=== PATIENT | female | born 2000 | race Caucasian/White ===

== ENCOUNTER 2019-02-11 15:51 | Emergency (ER) | payer OTHER, SELFPAY ==
[2019-02-11 15:52] VITALS: BP 146/118; PULSE 110; RESP 17; TEMP 36.9; O2SAT 97; BMI 39.2
--- NOTE | 2019-02-11 16:03 | EKG12_ITS ---
Test Reason : CP Blood Pressure : / mmHG Vent. Rate : 101 BPM Atrial Rate : 101 BPM P-R Int : 134 ms QRS Dur : 074 ms QT Int : 358 ms P-R-T Axes : 037 -03 -11 degrees QTc Int : 464 ms Sinus tachycardia Nonspecific T wave abnormality Abnormal ECG Confirmed by CORBIN TOTH ([id number]), state editor AFRICA MCCULLUOGH ([id number] on 02/16/2019 2:45:46 PM Referred By: KERMIT Confirmed By:JUAQUIN TOTH
--- NOTE | 2019-02-11 16:07 | NURSING ---
NO OLD EKGS
--- NOTE | 2019-02-11 16:08 | ED.DCSUM_ITS ---
- ER Visit Summary Date of Service: 02/11/19 Chief Complaint: [Chest pain] History of Present Illness: The patient is a 18 F [presents the emergency department chest discomfort that started about 2 hours ago. Patient describes a discomfort in her epigastric region and into the throat. Patient states the d iscomfort started about a half an hour after taking her medications which include Connie and fluoxetine. Patient has had similar episodes in the past and was told it was anxiety. Patient does feel somewhat jittery. Patient states at times pain is worse with deep breath and moving. Patient denies recent travel or surgery. She has had a slight cough but she relates that and attributes it to her history of allergies. She is had no fever. Cough is been nonproductive. She denies any significant shortness of breath.] When asked if she thought this could be heartburn-like symptoms patient states that she does not know what heartburn feels like. Patient does describe a burning-like sensation. Physical Examination: HEENT-PERRLA, EOMI. Cranial nerves II through XII grossly intact. TMs clear. Mucous membranes moist. No adenopathy. Cardiovascular-regular rate and rhythm without murmur or ectopy Lungs-clear to auscultation, chest wall stable without crepitus or subcu emphysema Abdomen-normoactive bowel sounds, soft, nontender, no rebound or rigidity, no peritoneal signs. Extremities-intact ?4, normal range of motion, normal pulses, atraumatic [] Test Results: [EKG obtained shows sinus rhythm with a ventricular rate of 101 bpm with no acute I segment changes noted. Chest x-ray obtained was normal.] Emergency Department Course and Treatment: [Patient was given a GI cocktail and she did have some improvement in the discomfort in her throat which resolved. He has had some minimal discomfort currently in her epigastric region.] Treatment Plan: [Patient to follow-up with primary care physician within next 3 to 5 days. Patient advised to return if worsening pain, increasing shortness of breath, or conditions worsen anyway.] I suspect patient may have had some GERD type symptoms and recommended taking juyr-myt-egyymja Pepcid for the next few weeks times persist. Disposition: [Discharged home in stable condition.] Impression: [Chest [id number]-pyurmbiq uncertain] This note was generated with [employer] software. It may contain incorrect words, spelling, and punctuation that were not noted in review of the chart prior to signing ED Disposition - Plan for ED Patient: Referrals: Blaine Conti MD [Primary Care Provider] -
[2019-02-11] MEDS: Mag Hydrox/Al Hydrox/Simeth 30 ML UDC PO (16:11)
--- NOTE | 2019-02-11 16:18 | RAD_ITS ---
STUDY: X-RAY CHEST REASON FOR EXAM: Female, 18 years old. Epigastric pain TECHNIQUE: PA and lateral views of the chest. COMPARISON: None. FINDINGS: The lungs are clear and expanded. There is no demonstrated pleural abnormality. Normal size heart. Normal mediastinum and phil. Normal visualized pulmonary arteries. Normal visualized aortic arch and descending thoracic aorta. Normal visualized thoracic spine. Normal visualized ribs, clavicles, and shoulders. There is no demonstrated abnormality of the visualized soft tissue structures of the upper abdomen. RAD/Chest PA and Lateral IMPRESSION: Normal x-ray examination of the chest. Electronically Signed: Pattie Gutiérrez, at 16:34 EDT Tel , Service support ,
--- NOTE | 2019-02-11 16:54 | ED.DEP ---
ED Disposition - Plan for ED Patient: Instructions: ED Chest Pain Atypical Unkn Cause Referrals: Blaine Conti MD [Primary Care Provider] - 3-5 Days
[2019-02-11 16:55] VITALS: BP 119/74; PULSE 84; RESP 18; O2SAT 99
== END 2019-02-11 16:57 | disposition home or self-care (01) ==
LOC: ED 16:25
PROVIDERS: Emergency Provider Emergency Medicine; Family Provider Pediatrics; PCP Pediatrics
DX: R07.9 Chest pain, unspecified (principal); R05 Cough; F41.9 Anxiety disorder, unspecified
CPT/HCPCS: 71046; 93005; 99283

== ENCOUNTER → 2019-04-27 08:14 | Outpatient (CLI) | payer OTHER, SELFPAY ==
--- NOTE | 2019-04-27 08:25 | RAD_ITS ---
STUDY: X-RAY - ESOPHAGUS (BARIUM SWALLOW) WITH FLUOROSCOPY REASON FOR EXAM: Female, 19 years old. Dysphagia. TECHNIQUE: 16 view(s) of the esophagus were obtained following swallowing of barium. FLUOROSCOPY TIME (if supplied): (1:00) minutes/seconds COMPARISON: None. FINDINGS: There is no demonstrated esophageal foreign body. There is no demonstrated stricture or mucosal abnormality. Normal gastroesophageal junction, without a demonstrated hiatal hernia. The patient ingested a 12 mm tablet of barium without any difficulty. Normal visualized aortic arch and descending thoracic aorta. Normal visualized pulmonary parenchyma. Normal visualized osseous structures of the thorax. RAD/Esophagus Only IMPRESSION: Normal plain film x-ray examination (barium swallow) of the esophagus. Electronically Signed: Ramiro Morillo, at 14:53 EDT , Service support ,
== END ==
PROVIDERS: Family Provider Pediatrics; PCP Pediatrics; Referring Provider Nurse Practitioner Adult Health; Visit Provider Nurse Practitioner Adult Health
DX: R13.10 Dysphagia, unspecified (principal)
CPT/HCPCS: 74220

== ENCOUNTER 2021-12-18 11:13 | Emergency (ER) | payer BC, SELFPAY ==
[2021-12-18 11:13] VITALS: BP 131/80; PULSE 96; RESP 16; TEMP 36.6; O2SAT 98; BMI 39.4
--- NOTE | 2021-12-18 11:20 | RAD_ITS ---
STUDY: X-RAY - LEFT ANKLE REASON FOR EXAM: Right ankle pain, right ankle injury. TECHNIQUE: 3 view(s) of the ankle. COMPARISON: None. FINDINGS: Normal visualized distal tibia and fibula. Normal medial and lateral malleoli. Normal tibiotalar articulation and ankle mortise. Normal visualized talus and calcaneus. The visualized subtalar, talonavicular, calcaneocuboid and tarsal articulations are normal. There is soft tissue swelling overlying the lateral malleolus. RAD/Ankle min 3 Views IMPRESSION: Soft tissue swelling. No demonstrated fracture. Electronically Signed: Reji Chavez MD at 11:53 EDT ,
--- NOTE | 2021-12-18 12:49 | ED.VIS.LOWEX ---
HPI History of Present Illness Chief Complaint: Lower Extremity Injury Informant: patient Occured/Mechanism Mechanism/Context: Yes injury Onset/Context/Timing Onset: Today Context: Sudden Onset Timing: Continuous Current Severity: Moderate Maximum Severity: Moderate Associated Symptoms Associated Symptoms: Negative for Parasthesia, Weakness and Loss of Funtion Narrative Narrative: 21-year-old female tripped going down the steps and twisted her left ankle. Complains of pain, swelling and unable to bear weight. Denies any other injuries. Denies any hip or knee pain. No prior history or surgery to the left ankle. Prior similar symptoms: No Recent Illness/Hospitalization: No PFSH PFSH Medical History no medical history no medical history Home Medications etonogestrel-ethinyl estradiol vag ring VAGINAL 12/18/21 [History Last Taken Unknown] Allergy/AdvReac Type Severity Reaction Status Date / Time spironolactone AdvReac Hives Verified 12/18/21 11:15 [From Aldactone] Surgical History no surgical history Social History Smoking Status: Never smoker ROS ROS ED ROS Narrative Denies recent illness. Review of Systems ROS Unobtainable: Denies due to encephalopathy Constitutional Constitutional ED: Denies fever(s) Eyes Eyes: Denies change in vision ENT ENT ED: Denies ear pain Cardiovascular Cardiovascular: Denies chest pain Respiratory/Chest Respiratory/Chest: Denies dyspnea Gastrointestinal Gastrointestinal: Denies abdominal pain Genitourinary Genitourinary ED: Denies dysuria Musculoskeletal Musculoskeletal: Denies myalgias Integumentary Denies rash Neurologic Neurologic: Denies headache(s) Psychiatric Psychiatric: Denies depression Endocrine Endocrinology: Denies polyuria Hematologic/Lymphatic Hematologic/Lymphatic: Denies easy bruising Allergic/Immunologic Allergic/Immunologic ED: Denies urticaria EXAM Physical Exam Narrative Exam Narrative: 19-year-old female no acute distress. Exam normal neck soft left lateral ankle tender and mildly swollen. Medial ankle nonswollen. Dorsi plantarflexion intact. Achilles tendon intact. Left foot nontender neurovascular intact. Normal DP pulse. Able to wiggle her toes. No bony deformity. Const Vital Signs: 12/18/21 11:13 Temperature 97.8 F Temperature Source Temporal Pulse Rate 96 Respiratory Rate 16 Blood Pressure 131/80 H Blood Pressure Mean 97 Pulse Ox 98 Oxygen Delivery Method Room Air Positive well nourished, well developed and obese; Negative for cachectic, contractures or unkempt General Appearance ED: well developed and NAD; Negative for unkempt, cachectic or contractures Nutritional Appearance: obese; Negative for cachectic HEENT Reports moist mucous membranes normocephalic and atraumatic; Negative for trauma or tenderness Eyes PERRL Neck full ROM and supple Thyroid: Negative for tender Chest Wall inspection of chest normal and palpation of chest normal Resp normal respiratory effort, no retractions and clear to auscultation bilaterally Auscultation: Negative for rales, rhonchi or wheezes Cardio regular rate, regular rhythm, S1 normal heart sound, S2 normal heart sound and no murmurs GI non-tender, non-distended and no masses Auscultation: normoactive bowel sounds Palpation: soft; Negative for tender or guarding Back/Spine no CVA tenderness General Back: Negative for CVA tenderness Cervical Spine: Negative for cervical spine tenderness Thoracic Spine / Upper Back: Negative for thoracic spinal tenderness Lumbar Spine / Lower Back: Negative for lumbar spinal tenderness Extremity normal to inspection and full ROM Extremity Narrative: Extremities normal except left lateral ankle tenderness and swelling. No bony deformity. Normal range of motion. Left foot nontender neurovascular intact. General Extremety ED: Negative for cyanosis or edema General Extremity: Negative for cyanosis or edema Neuro oriented x3 and moves all extremities Sensorium / Orientation: alert, oriented to person, oriented to place and oriented to time; Negative for orientation impaired, confused, lethargic or stuporous Motor Exam: strength 5/5 throughout Psych mental status grossly normal Appearance: Negative for unkempt Mood & Affect: Negative for anxious Skin no wounds Lesions: no lesions Rashes: no rashes Trauma: Negative for abrasion or laceration MDM MDM MDM Narrative Medical decision making narrative: Patient's exam and history consistent with a left ankle sprain. Ice and elevate. Crutches and increase weightbearing as tolerated. Aircast. Motrin for pain and swelling. Follow-up if not improving. I did go over the x-rays with the patient. Lab Data Attestation: I reviewed the patient's lab results. Radiography Diagnostic Testing: Clinical Impression(s) from Imaging Studies Ankle X-Ray 12/18/21 11:20 IMPRESSION: Soft tissue swelling. No demonstrated fracture. Electronically Signed: Reji Chavez MD at 11:53 EDT , Left ankle x-ray, 3 views, interpreted by myself and radiologist shows no acute abnormality. Soft tissue swelling. No fracture. Discharge Plan Triage Chief Complaint: Lower Extremity Injury ED Provider: Rajan Jin Dx/Rx/DC Orders Clinical Impression: Ankle sprain Instructions: ED Ankle Sprain (Adult) Prescriptions: No Action etonogestrel-ethinyl estradiol 0.12-0.015 mg/24 hr ring VAGINAL RF: 0 Primary Care Provider: Blaine Conti Referrals: Blaine Conti MD [Primary Care Provider] - 10-14 Days if not better Activity Restrictions/Additional Instructions: Ice and elevate left ankle to decrease pain and swelling. Motrin for pain and swelling and Tylenol for pain. Initially no weightbearing then increase weightbearing as tolerated. Follow-up with your doctor if not improving. Your x-rays today showed no broken bones or any dislocation. Disposition Disposition: Home, Self Care
[2021-12-18] MEDS: Ibuprofen 600 MG Tablet PO (13:14)
== END 2021-12-18 13:15 | disposition home or self-care (01) ==
PROVIDERS: Emergency Provider Emergency Medicine; PCP Pediatrics; Visit Provider Emergency Medicine
DX: S93.402A Sprain of unspecified ligament of left ankle, initial encounter (principal); W22.8XXA Striking against or struck by other objects, initial encounter; Y93.89 Activity, other specified; Y99.9 Unspecified external cause status; Y92.89 Other specified places as the place of occurrence of the external cause
CPT/HCPCS: 73610; 99284